=== PATIENT | male | born 1935 | race Hispanic/Latino ===

== ENCOUNTER → 2020-07-31 | Outpatient (CLI) | payer OTHER | END | disposition home or self-care (01) | LOC: RAH 07-28 13:03 | PROVIDERS: ATTEND Family Medicine | DX: R10.13 Epigastric pain (principal); R10.9 Unspecified abdominal pain; M54.9 Dorsalgia, unspecified | CPT/HCPCS: 78264; A9541 ==

== ENCOUNTER → 2024-02-09 | Outpatient (CLI) | payer OTHER ==
[~2024-02-09] MED LIST: ATOR10 PO; BRIM5DRO2 OP; BUSP15TA3 PO; DICL1PAT7 TD; DORZ10DR9 OD; GLIM4TAB36 PO; HYDR-3830 PO; ICOS1CAP PO; INSU300I3 SQ; LATA2.5D14 OP; MELO-106 PO; MULT-1259 PO; OMEP40CA21 PO; PARO40TA72 PO; TIOT4MIS5 IH; TRIAMCINOLONE
[2024-02-09 13:14] LABS: ALBUMIN 3.5 g/dL (3.5-5.0); BILIRUBIN,TOTAL 0.4 mg/dL (0.2-1.0); CREATININE 0.7 mg/dL (0.5-1.3); POTASSIUM 4.1 mmol/L (3.5-5.1); THYROID STIMULATING HORMONE 2.86 uIU/mL (0.36-3.74); TOTAL PROTEIN, SERUM 6.5 g/dL (6.0-8.3)
== END | disposition home or self-care (01) ==
LOC: LAB 08:07
PROVIDERS: ATTEND Internal Medicine Cardiovascular Disease
DX: R55 Syncope and collapse (principal); R42 Dizziness and giddiness; I10 Essential (primary) hypertension; E11.9 Type 2 diabetes mellitus without complications; E78.5 Hyperlipidemia, unspecified; R63.4 Abnormal weight loss; Z79.899 Other long term (current) drug therapy; Z95.818 Presence of other cardiac implants and grafts
CPT/HCPCS: 36415; 80053; 82533; 82607; 82747; 84439; 84443; 86592

== ENCOUNTER 2024-02-20 05:45 | Day surgery (SDC) | payer OTHER ==
[2024-02-18 12:13] LABS: BASOPHILS # (AUTO) 0.03 K/uL (0.00-0.20); BASOPHILS % (AUTO) 0.5 % (0.0-5.0); EOSINOPHILS # (AUTO) 0.42 K/uL (0.00-0.70); EOSINOPHILS % (AUTO) 6.9 % (0.0-8.0); IMMATURE GRANULOCYTE ABSOLUTE 0.02 K/uL (0-1); LYMPHOCYTES # (AUTO) 1.3 K/uL (1.0-4.8); LYMPHOCYTES % (AUTO) 21.4 % (21.0-51.0); MEAN CORPUSCULAR HEMOGLOBIN 30.5 pg (27.0-33.0); MEAN CORPUSCULAR HGB CONC 33.7 g/dL (32.0-36.0); MEAN CORPUSCULAR VOLUME 90.3 fL (79-99); MONOCYTES # (AUTO) 0.7 K/uL (0.1-1.0); MONOCYTES % (AUTO) 11.8 % (3.0-13.0); NEUTROPHILS # (AUTO) 3.6 K/uL (1.8-7.7); NEUTROPHILS % (AUTO) 59.1 % (40.0-77.0); PLATELET COUNT (AUTO) 192 K/uL (130-400); RED BLOOD CELL COUNT(AUTO) 4.76 MIL/uL (4.50-6.20); RED CELL DISTRIBUTION WIDTH 15.4 % (11.0-15.5); WHITE BLOOD COUNT (AUTO) 6.1 K/uL (4.8-10.8)
[2024-02-18 12:20] VITALS: BP 179/87; PULSE 72; RESP 18; TEMP 97.5
[2024-02-18 12:27] LABS: INR 1.06 (0.85-1.15); PROTHROMBIN TIME 11.4 SEC (9.6-11.6)
[2024-02-18 12:28] LABS: PARTIAL THROMBOPLASTIN TIME 29.6 SEC (26.3-35.5)
--- NOTE | 2024-02-18 12:30 | EKG ---
[facility] Test Date: 2024-02-18 Test Time: 12:57:52 Pat Name: LUBA HEBERT Department: [facility] Room: Gender: M Access Liaison: [id number] : 1935 Requested By: YOLANDA AQUINO Order Number: [id number] Reading MD: Jona Cochran Measurements Intervals [place] Rate: 72 P: 38 HI: 226 QRS: -25 QRSD: 95 T: 33 QT: 382 QTc: 420 Interpretive Statements Sinus rhythm Prolonged HI interval No previous ECG available for comparison Electronically Signed On 02-19-2024 14:07:06 ACID CONCENTRATOR by Jona Cochran Please click the below link to view image of tracing.
[2024-02-18 12:38] LABS: CREATININE 0.8 mg/dL (0.5-1.3)
[~2024-02-20] VITALS: Ht 180.3 cm; Wt 82.8 kg
[2024-02-20 06:15] VITALS: BP 163/86; PULSE 70; RESP 17; TEMP 97.3
[2024-02-20] MEDS ORDERED: LIDOCAINE HCL 1% MDV 50ML VIAL ONE (07:18)
[2024-02-20] MEDS ORDERED: hydrALAZine 20MG/ML VIAL ONE (07:35)
[2024-02-20] MEDS ORDERED: BUPIvacaine/PF 0.25% 30ML VIAL IJ ONE (07:37)
[2024-02-20] MEDS ORDERED: BACITRACIN 1 EACH PACKET TP ONE (07:49)
--- NOTE | 2024-02-20 08:10 | PRN ---
Procedure Note Date of procedure: 02/20/24 Diagnosis: Loop Recorder Battery Depletion Procedure: Loop Recorder Explantation The patient was brought to the day patient area in a fasting state. Per patient preference, no sedation was used. The site was infiltrated with local anesthetic. The existing scar was excised and the tissues were dissected down to the device. The device was freed from the fibrous tissue and explanted. Hemostasis was achieved and the incision was closed with 3 interrupted 2-0 Prolene sutures. A sterile dressing was applied and the patient was returned to his room in stable condition. The patient tolerated the procedure well and there were no complications. Final diagnosis: Loop recorder battery depletion, s/p successful explantation. Disposition: The patient will be discharged and will follow up with me in the office in approximately two weeks. YOLANDA AQUINO MD Feb 20, 2024 08:10
[2024-02-20 08:17] VITALS: BP 132/68; PULSE 74; RESP 15; TEMP 97.3
--- NOTE | 2024-02-20 08:20 | NUR ---
FOLLOW UP TIME CHANGED PER DR. AQUINO NEW TIME AND DATE WERE WRITTEN DOWN ON DISCHARGE INSTRUCTIONS AND GIVEN VERBALLY TO BOTH PT AND 03-01-24 10:50 AM
== END 2024-02-20 08:35 | disposition home or self-care (01) ==
LOC: DAH 05:45
PROVIDERS: ATTEND Internal Medicine Cardiovascular Disease
DX: Z45.09 Encounter for adjustment and management of other cardiac device (principal); R55 Syncope and collapse; I10 Essential (primary) hypertension; E11.9 Type 2 diabetes mellitus without complications; G47.30 Sleep apnea, unspecified; R63.4 Abnormal weight loss; E78.5 Hyperlipidemia, unspecified; Z82.49 Family history of ischemic heart disease and other diseases of the circulatory system; Z83.3 Family history of diabetes mellitus; Z90.49 Acquired absence of other specified parts of digestive tract; Z90.89 Acquired absence of other organs; Z98.890 Other specified postprocedural states; Y83.8 Other surgical procedures as the cause of abnormal reaction of the patient, or of later complication, without mention of misadventure at the time of the procedure; Y92.89 Other specified places as the place of occurrence of the external cause; Z79.4 Long term (current) use of insulin
CPT/HCPCS: 80048; 85025; 85610; 85730; 36415; 93005; 33286; 82948; J0665; A4649; J0360; J3490; A4215; A6402; A4222; A4221; A4663; A4216; A6206; A4606; A4223 ×3

== ENCOUNTER → 2024-03-12 | Outpatient (CLI) | payer OTHER | END | disposition home or self-care (01) | LOC: LAB 08:23 | PROVIDERS: ATTEND Internal Medicine Cardiovascular Disease | DX: I95.1 Orthostatic hypotension (principal) | CPT/HCPCS: 36415; 82533 ==